=== PATIENT | female | born 1970 | race Caucasian/White ===

== ENCOUNTER 2016-08-20 01:36 | Emergency (ER) | payer SELFPAY ==
--- NOTE | 2016-08-20 03:11 | ER Document Report ---
ED Respiratory Problem - General Chief Complaint: Productive Cough Stated Complaint: COUGH Time Seen by Provider: 08/20/16 03:10 Mode of Arrival: Ambulatory Information source: Patient Notes: Patient is a 45-year-old female who has smoked for 30 years who presents to the ER today for 2 weeks of cough that began as sinus pressure, drainage. She admits to fever and chills but did not take her temperature. She states that she has been wheezing and had shortness of breath. She has not diagnosed with asthma or COPD, has no inhalers at home. She states that sometimes she coughs so hard she vomits afterwards. TRAVEL OUTSIDE OF THE [place] IN LAST 30 DAYS: No - Related Data Allergies/Adverse Reactions: No Known Allergies Allergy (Unverified 09/26/10 07:54) Past Medical History - General Information source: Patient - Social History Smoking Status: Current Every Day Smoker Chew tobacco use (# tins/day): No Frequency of alcohol use: None Drug Abuse: None Family History: Reviewed & Not Pertinent Patient has suicidal ideation: No Patient has homicidal ideation: No - Past Medical History Cardiac Medical History: Denies: Hx Heart Attack, Hx Hypertension Pulmonary Medical History: Denies: Hx Asthma Neurological Medical History: Denies: Hx Cerebrovascular Accident, Hx Seizures Renal/ Medical History: Denies: Hx Peritoneal Dialysis GI Medical History: Denies: Hx Hepatitis, Hx Hiatal Hernia, Hx Ulcer Infectious Medical History: Denies: Hx Hepatitis Past Surgical History: Reports: Hx Tonsillectomy, Hx Tubal Ligation. Denies: Hx Hysterectomy, Hx Mastectomy, Hx Open Heart Surgery, Hx Pacemaker - Immunizations Hx Diphtheria, Pertussis, Tetanus Vaccination: Yes Review of Systems - Review of Systems Constitutional: See HPI EENT: See HPI Cardiovascular: No symptoms reported Respiratory: See HPI Gastrointestinal: No symptoms reported Genitourinary: No symptoms reported Female Genitourinary: No symptoms reported Musculoskeletal: No symptoms reported Skin: No symptoms reported Hematologic/Lymphatic: No symptoms reported Neurological/Psychological: No symptoms reported Physical Exam - Vital signs Vitals: Temp Pulse Resp BP Pulse Ox 98.6 F 72 20 114/50 L 96 08/20/16 01:41 08/20/16 01:41 08/20/16 01:41 08/20/16 01:41 08/20/16 01:41 - Notes Notes: PHYSICAL EXAMINATION: GENERAL: Mildly ill-appearing, but in no acute distress. HEAD: Atraumatic, normocephalic. EYES: Pupils equal round and reactive to light, extraocular movements intact, sclera anicteric, conjunctiva are normal. ENT: ear canals without erythema or foreign body, TMs pearly badillo with good bony landmarks, nares patent, oropharynx erythematous without enlarged tonsils and without exudates. Moist mucous membranes. NECK: Normal range of motion, supple without lymphadenopathy LUNGS: Moderate expiratory wheezes throughout, no rales or rhonchi. HEART: Regular rate and rhythm without murmurs ABDOMEN: Soft, no tenderness. No guarding, no rebound BACK: no vertebral tenderness, normal ROM GI/: no CVA tenderness EXTREMITIES: Normal range of motion, no pitting edema. No cyanosis. NEUROLOGICAL: Cranial nerves grossly intact. Normal sensory/motor exams. PSYCH: Normal mood, normal affect. SKIN: Warm, Dry, normal turgor, no rashes or lesions noted Course - Re-evaluation Re-evalutation: 08/20/16 04:11 Chest x-ray negative for any acute pathology. Patient given breathing treatments, cough medication, started on prednisone here. - Vital Signs Vital signs: Temp Pulse Resp BP Pulse Ox 98.6 F 72 20 114/50 L 96 08/20/16 01:41 08/20/16 01:41 08/20/16 01:41 08/20/16 01:41 08/20/16 01:41 Discharge - Discharge Clinical Impression: Bronchitis Sinusitis Qualifiers: Sinusitis location: unspecified location Chronicity: acute Recurrence: non- recurrent Qualified Code(s): J01.90 - Acute sinusitis, unspecified Condition: Stable Disposition: HOME, SELF-CARE Instructions: Bronchitis With Bronchospasm (Wheezing) ([facility]) Additional Instructions: Please use breathing treatments every 4 hours for shortness of breath and wheezing. Return immediately for any new or worsening symptoms. Follow up with primary care provider, call tomorrow to make followup appointment. Prescriptions: Benzonatate [Tessalon Perle 100 mg Capsule] 100 mg PO Q8HP PRN #14 cap PRN Reason: Albuterol Sulfate [Albuterol Sulfate 2.5mg/3 mL] 1 vial IH Q4 PRN #25 vial PRN Reason: Prednisone 60 mg PO DAILY #21 tablet Sulfamethoxazole/Trimethoprim [Bactrim Ds Tablet] 1 each PO BID #20 tablet
[2016-08-20] MEDS ORDERED: ALBUTEROL SULFATE 0.083% NEB 2.5 MG/3 ML AMPUL NEB ONE ×2 (03:56→04:49)
[2016-08-20] MEDS ORDERED: BENZONATATE 100 MG CAPSULE PO ONE (03:56)
[2016-08-20] MEDS ORDERED: PREDNISONE 20 MG TABLET PO ONE (03:56)
[2016-08-20] MEDS ORDERED: IPRATROPIUM/ALBUTEROL 0.5-2.5 MG/3 ML AMPUL NEB ONE (03:56)
[2016-08-20] MEDS ORDERED: CEFTRIAXONE INJ 1000 MG VIAL IM ONE (04:08)
[2016-08-20] MEDS ORDERED: LIDOCAINE 1% INJ-PF (10 MG/ML) 30 ML SDV INJ ONE (04:08)
--- NOTE | 2016-08-20 04:08 | RADIOLOGY REPORT (SQ) ---
EXAM DESCRIPTION: CHEST PA/LAT COMPLETED DATE/TIME: 08/20/2016 3:42 am REASON FOR STUDY: cough, sob COMPARISON: None. EXAM PARAMETERS: NUMBER OF VIEWS: two views TECHNIQUE: Digital Frontal and Lateral radiographic views of the chest acquired. RADIATION DOSE: NA LIMITATIONS: none FINDINGS: LUNGS AND PLEURA: No opacities, masses or pneumothorax. No pleural effusion. MEDIASTINUM AND HILAR STRUCTURES: No masses or contour abnormalities. HEART AND VASCULAR STRUCTURES: Heart normal size. No evidence for failure. BONES: No acute findings. HARDWARE: None in the chest. OTHER: No other significant finding. IMPRESSION: NO SIGNIFICANT RADIOGRAPHIC FINDING IN THE CHEST. TECHNICAL DOCUMENTATION: JOB ID: [id number] [employer]- All Rights Reserved
[2016-08-20 05:28] VITALS: BP 122/54
== END 2016-08-20 05:27 | disposition home or self-care (01) ==
LOC: ER 01:36
DX: J40 Bronchitis, not specified as acute or chronic (principal); J01.90 Acute sinusitis, unspecified; R06.2 Wheezing; R05 Cough; R06.02 Shortness of breath; R68.83 Chills (without fever); F17.200 Nicotine dependence, unspecified, uncomplicated
CPT/HCPCS: 94640 ×2; 99283; 96372; 71020; J3490; J7512; J0696; J7620

== ENCOUNTER 2017-06-21 17:39 | Emergency (ER) | payer SELFPAY ==
[2017-06-21] MEDS ORDERED: IPRATROPIUM/ALBUTEROL 0.5-2.5 MG/3 ML AMPUL NEB ONE ×2 (18:32)
[2017-06-21] MEDS ORDERED: PREDNISONE 20 MG TABLET PO ONE (18:32)
--- NOTE | 2017-06-21 18:34 | ER Document Report ---
ED Respiratory Problem - General Chief Complaint: Productive Cough Stated Complaint: BREATHING PROBLEMS Time Seen by Provider: 06/21/17 18:25 Mode of Arrival: Ambulatory Information source: Patient TRAVEL OUTSIDE OF THE [place] IN LAST 30 DAYS: No - HPI Patient complains to provider of: Cough Onset: Last week Notes: Patient is here with complaints of cough with wheezing that started 5 days ago. She denies fever. She denies nausea, vomiting, diarrhea. No difficulty breathing. She has been wheezing. She denies any chest pain or shortness of breath. No abdominal pain. No numbness, tingling, weakness. No leg pain or leg swelling. She is a smoker. She states that she gets bronchitis at least once a year. She has no other complaints at this time. - Related Data Allergies/Adverse Reactions: No Known Allergies Allergy (Verified 06/21/17 17:44) Past Medical History - Social History Smoking Status: Current Every Day Smoker Family History: Reviewed & Not Pertinent - Past Medical History Cardiac Medical History: Denies: Hx Heart Attack, Hx Hypertension Pulmonary Medical History: Denies: Hx Asthma Neurological Medical History: Denies: Hx Cerebrovascular Accident, Hx Seizures Renal/ Medical History: Denies: Hx Peritoneal Dialysis GI Medical History: Denies: Hx Hepatitis, Hx Hiatal Hernia, Hx Ulcer Infectious Medical History: Denies: Hx Hepatitis Past Surgical History: Reports: Hx Tonsillectomy, Hx Tubal Ligation. Denies: Hx Hysterectomy, Hx Mastectomy, Hx Open Heart Surgery, Hx Pacemaker - Immunizations Hx Diphtheria, Pertussis, Tetanus Vaccination: Yes Review of Systems - Review of Systems -: Yes All other systems reviewed and negative Physical Exam - Vital signs Vitals: Temp Pulse Resp BP Pulse Ox 98.5 F 79 16 114/62 94 06/21/17 18:11 06/21/17 18:11 06/21/17 18:11 06/21/17 18:11 06/21/17 18:11 - Notes Notes: GENERAL: alert, cooperative, nontoxic, no distress. HEAD: normocephalic, atraumatic EYES: conjunctiva pink without discharge, no external redness or swelling. EARS: no external swelling, no external redness, no mastoid redness, swelling, tenderness. Ear canals are clear without swelling or drainage. TMs pearly fofana , no redness, no bulging, normal landmarks, no perforation. NOSE: atraumatic, no external swelling. clear rhinorrhea noted. MOUTH/THROAT: mucous membranes moist and pink, posterior pharynx without erythema, swelling, exudate. No trismus or drooling. NECK: soft, supple, full range of motion, no meningismus. CHEST: No distress, no increased work of breathing. Next Tory wheezing heard throughout. No crackles. Good air movement. CARDIAC: regular rate and rhythm, no murmur, normal capillary refill, normal pulses. No peripheral edema noted. BACK: full range of motion, no CVA tenderness. EXTREMITIES: full range of motion of all extremities. No redness, no swelling. NEURO: alert and oriented A&O3, no focal deficits, full range of motion of all extremities. PYSCH: appropriate mood, affect. Patient is cooperative. SKIN: pink, warm, dry, no rash. Course - Re-evaluation Re-evalutation: 06/21/17 19:43 Patient is nontoxic appearing stable vitals. The patient is here with complaints of cough and wheezing. She is a smoker. She has a history of bronchitis in the past. She denies any significant difficult to breathing. No fever. On exam she is in no distress but is noted to have expiratory wheezing throughout. She was given 2 breathing treatments here, she continues to have some wheezing but states that she feels better. She is given prednisone here. Chest x-ray shows no acute abnormality. Patient will be discharged home with prescription for prednisone as well as albuterol nebs for her machine at home. Follow-up if she has not better in 1 week, sooner for worsening pain, fever, difficulty breathing or swallowing, persistent vomiting, or for any further concerns. The patient's emergency department workup and current diagnosis were explained to the patient and or family. Follow-up instructions were provided. Medications if prescribed were discussed. Instructions for when to return to the emergency department including specific worrisome symptoms were discussed with the patient and/or family. - Vital Signs Vital signs: Temp Pulse Resp BP Pulse Ox 98.5 F 79 16 114/62 94 06/21/17 18:11 06/21/17 18:11 06/21/17 18:11 06/21/17 18:11 06/21/17 18:11 - Diagnostic Test Radiology reviewed: Image reviewed, Reports reviewed - Chest x-ray negative Discharge - Discharge Clinical Impression: Bronchitis Condition: Stable Disposition: HOME, SELF-CARE Instructions: Bronchitis ([facility]) Additional Instructions: Take medications as prescribed. Drink plenty fluids. Try to stop smoking. Follow-up if not better in 1 week, sooner for worsening symptoms, high fever, difficulty breathing, or for any further concerns. Prescriptions: Albuterol Sulfate [Albuterol Sulfate 2.5mg/3 mL] 2.5 mg IH Q4H PRN #1 pkg PRN Reason: Prednisone [Deltasone 20 mg Tablet] 3 tab PO DAILY 5 Days tablet Forms: Smoking Cessation Education Referrals: [facility] [Provider Group] - Follow up as needed
--- NOTE | 2017-06-21 18:46 | RADIOLOGY REPORT (SQ) ---
EXAM DESCRIPTION: CHEST PA/LAT COMPLETED DATE/TIME: 06/21/2017 6:37 pm REASON FOR STUDY: cough COMPARISON: 08/20/2016 EXAM PARAMETERS: NUMBER OF VIEWS: two views TECHNIQUE: Digital Frontal and Lateral radiographic views of the chest acquired. RADIATION DOSE: NA LIMITATIONS: none FINDINGS: LUNGS AND PLEURA: No opacities, masses or pneumothorax. No pleural effusion. MEDIASTINUM AND HILAR STRUCTURES: No masses or contour abnormalities. HEART AND VASCULAR STRUCTURES: Heart normal size. No evidence for failure. BONES: No acute findings. HARDWARE: None in the chest. OTHER: No other significant finding. IMPRESSION: NO SIGNIFICANT RADIOGRAPHIC FINDING IN THE CHEST. TECHNICAL DOCUMENTATION: JOB ID: [id number] [employer]- All Rights Reserved Reading location - IP/workstation name: [email or web address]
[2017-06-21 20:07] VITALS: BP 116/66
== END 2017-06-21 20:05 | disposition home or self-care (01) ==
LOC: ER 17:39
DX: J40 Bronchitis, not specified as acute or chronic (principal); R05 Cough; R06.2 Wheezing; F17.200 Nicotine dependence, unspecified, uncomplicated
CPT/HCPCS: 94640 ×2; 99283; 71046; J7512; J7620

== ENCOUNTER → 2017-09-20 | Outpatient (CLI) | payer OTHER ==
--- NOTE | 2017-09-20 15:38 | WOMENS IMAGING REPORT ---
EXAM DESCRIPTION: BILAT SCREENING MAMMO W/CAD COMPLETED DATE/TIME: 09/20/2017 9:31 am REASON FOR STUDY: ROUTINE SCREENING;Z12.31 Z12.31 ENCNTR SCREEN MAMMOGRAM FOR MALIGNANT NEOPLASM OF ESTHER COMPARISON: 2014 TECHNIQUE: Standard craniocaudal and mediolateral oblique views of each breast recorded using digita l acquisition. LIMITATIONS: None. FINDINGS: No masses, calcifications or architectural distortion. No areas of suspicion. Read with the assistance of CAD. .[facility] - R2 Cenova Version 1.3 .[facility] Imaging - R2 Cenova Version 1.3 .[facility] - R2 Cenova Version 2.4 .[facility] [place] - R2 Cenova Version 2.4 .[facility] - R2 Mental [employer] Aide Version 9.2 IMPRESSION: NORMAL MAMMOGRAM. BIRADS 1. BREAST DENSITY: a. The breasts are almost entirely fatty. BIRAD: 1 NEGATIVE RECOMMENDATION: ROUTINE SCREENING COMMENT: The patient has been notified of the results by letter per MQSA requirements. Additional no tification policies are in place for contacting patient with suspicious or incomplete findings. Quality ID #[id number]: The [employer] recommends an annual screening mammogram for women aged 40 years or over. This facility utilizes a reminder system to ensure that all patients receive reminder letters, and/or direct phone calls for appointments. This includes reminders for routine scr eening mammograms, diagnostic mammograms, or other Breast Imaging Interventions when appropriate. Th is patient will be placed in the appropriate reminder system. The [employer] ([employer]) has developed recommendations for screening MRI of the breast s in certain patient populations, to be used in conjunction with mammography. Breast MRI surveillanc e may be appropriate for women with more than 20% lifetime risk of developing breast cancer as deter mined by genetic testing, significant family history of the disease, or history of mantle radiation f or Hodgkins Disease. ACR Practice Guidelines 2008. TECHNICAL DOCUMENTATION: FINDING NUMBER: (1) ASSESSMENT: (1) JOB ID: [id number] [employer]- All Rights Reserved Reading location - IP/workstation name: [email or web address]
== END ==
LOC: WI 09:11
PROVIDERS: ATTEND Advanced Practice Midwife
DX: Z12.31 Encounter for screening mammogram for malignant neoplasm of breast (principal)
CPT/HCPCS: 77067